=== PATIENT | female | born 1950 | race Caucasian/White ===

== ENCOUNTER 2018-09-29 12:57 | Inpatient (IN) | payer OTHER ==
[~2018-09-29] VITALS: Ht 157.5 cm; Wt 59.0 kg
[2018-09-29] MEDS ORDERED: TOPROL XL50 MG PO (13:13)
--- NOTE | 2018-09-29 13:24 | NUR ---
SE RECIBE PACIENTE ALERTA Y ORIENTADA X3, CON BUEN PATRON RESPIRATORIO Y SIGNOS VITALES ESTABLES. REFIERE DOLOR EN AREA ABDOMINAL. SE COLOCA EN CAMA Y SE LAURA BAJO OBSERVACION.
--- NOTE | 2018-09-29 15:18 | NUR ---
SE RECIBE PTE ALERTA Y ORIENTADA EN 3 ESFERAS. SE CANALIZA Y SE AMALIA MUESTRAS DE GAYE BAJO MEDIDAS ASEPTICAS Y BROOKS ORDEN MEDICA. SE ADMINISTRAN MEDICAMENTOS BROOKS ORDEN MEDICA. SE ORIENTA A PTE SOBRE TRATAMEINTO EL CUAL REFIERE ENTENDER.
--- NOTE | 2018-09-30 07:53 | NUR ---
PTE ALERTA Y ORIENTADA X 3 ESFERAS,EN VAN CON BARANDAS ELEVADAS,EN COMPANAI DE FAMILIAR.REFIERE DOLOR,SE NOTIFICA A DR BARRIOS QUIEN ORDENA DEMEROL 50MG IM,SE ADMINISTRA BROOKS ORDEN MEDICA.PTE CON AREA DE VENOPUNCION PATENTE Y NEVA DE EDEMA CON FLUIDOS DE MANTENIMIENTO BAJANDO SIN DIFICULTAD.PENDIENTE A EVALUACION DE Y E LUX.
== END 2018-11-08 18:01 | disposition designated cancer center or children's hospital (05) | DRG 371 ==
LOC: ER 12:57 → SURG 09-30 08:53 → SEC-K 09-30 08:53 → SURG 09-30 19:11 → SURH 10-01 19:33 → SURG 10-11 12:22 → ICU 10-16 19:56 → SURG 10-20 20:46 → MEDJ 10-20 20:49
PROVIDERS: ADMIT Surgery
PROC: BW21Y0Z Computerized Tomography (CT Scan) of Abdomen and Pelvis using Other Contrast, Unenhanced and Enhanced (ICD-10-PCS; 2018-10-06)
PROC: 0J9C30Z Drainage of Pelvic Region Subcutaneous Tissue and Fascia with Drainage Device, Percutaneous Approach (ICD-10-PCS; principal; 2018-10-08)
PROC: B246ZZZ Ultrasonography of Right and Left Heart (ICD-10-PCS; 2018-10-08)
PROC: 02HV33Z Insertion of Infusion Device into Superior Vena Cava, Percutaneous Approach (ICD-10-PCS; 2018-10-11)
PROC: 4A033R1 Measurement of Arterial Saturation, Peripheral, Percutaneous Approach (ICD-10-PCS; 2018-10-11)
PROC: 0T9B70Z Drainage of Bladder with Drainage Device, Via Natural or Artificial Opening (ICD-10-PCS; 2018-10-11)
PROC: BW24Y0Z Computerized Tomography (CT Scan) of Chest and Abdomen using Other Contrast, Unenhanced and Enhanced (ICD-10-PCS; 2018-10-12)
PROC: 4A12X4Z Monitoring of Cardiac Electrical Activity, External Approach (ICD-10-PCS; 2018-10-17)
PROC: 3E0336Z Introduction of Nutritional Substance into Peripheral Vein, Percutaneous Approach (ICD-10-PCS; 2018-10-18)
PROC: 3E0F7GC Introduction of Other Therapeutic Substance into Respiratory Tract, Via Natural or Artificial Opening (ICD-10-PCS; 2018-10-21)
PROC: 30233N1 Transfusion of Nonautologous Red Blood Cells into Peripheral Vein, Percutaneous Approach (ICD-10-PCS; 2018-10-24)
PROC: 3E0G8GC Introduction of Other Therapeutic Substance into Upper GI, Via Natural or Artificial Opening Endoscopic (ICD-10-PCS; 2018-10-28)
PROC: CW101ZZ Planar Nuclear Medicine Imaging of Abdomen using Technetium 99m (Tc-99m) (ICD-10-PCS; 2018-10-28)
DX: K35.33 Acute appendicitis with perforation, localized peritonitis, and gangrene, with abscess (principal); A41.89 Other specified sepsis; J80 Acute respiratory distress syndrome; K29.81 Duodenitis with bleeding; L02.211 Cutaneous abscess of abdominal wall; J90 Pleural effusion, not elsewhere classified; K92.1 Melena; D62 Acute posthemorrhagic anemia; K22.10 Ulcer of esophagus without bleeding; B48.8 Other specified mycoses; B37.89 Other sites of candidiasis; I10 Essential (primary) hypertension; F17.220 Nicotine dependence, chewing tobacco, uncomplicated; E87.6 Hypokalemia; J98.01 Acute bronchospasm; D69.49 Other primary thrombocytopenia; R19.03 Right lower quadrant abdominal swelling, mass and lump; G72.89 Other specified myopathies; L27.0 Generalized skin eruption due to drugs and medicaments taken internally; T37.8X5A Adverse effect of other specified systemic anti-infectives and antiparasitics, initial encounter; K59.09 Other constipation; K31.89 Other diseases of stomach and duodenum

== ENCOUNTER 2018-12-30 13:40 | Emergency (ER) | payer OTHER ==
[~2018-12-30] VITALS: Ht 157.5 cm; Wt 60.3 kg
[~2018-12-30 13:40] MED LIST: TOPROL XL50 MG PO
[2018-12-30] MEDS ORDERED: OMEGA 3-6-9 CO400 MG (14:13)
[2018-12-30] MEDS ORDERED: BACTRIM DS TAB1 EACH PO (15:27)
== END 2018-12-30 16:18 | disposition home or self-care (01) ==
LOC: ER 13:40
DX: L03.113 Cellulitis of right upper limb (principal)

== ENCOUNTER 2022-07-25 09:38 | Outpatient (CLI) | payer OTHER ==
[~2022-07-25 09:38] MED LIST changes: +BACTRIM DS TAB1 EACH PO; +OMEGA 3-6-9 CO400 MG
== END 2022-07-25 09:56 | disposition home or self-care (01) ==
LOC: SONOGRAMA 09:38
PROVIDERS: ATTEND Podiatrist Foot Surgery
DX: M72.2 Plantar fascial fibromatosis (principal); M76.811 Anterior tibial syndrome, right leg; M76.822 Posterior tibial tendinitis, left leg